=== PATIENT | male | born 1980 | race Caucasian/White ===

== ENCOUNTER 2025-08-08 21:19 | Emergency (ER) | payer BC, SELFPAY ==
--- NOTE | ~2025-08-08 | XR_ITS ---
Examination: XR hand LT min 3V Clinical History: Nail stuck in hand Comparison: None Technique: 3 views left hand Findings/impression: 1. Metallic nail palmar soft tissues along proximal third metacarpal. 2. No fracture or other acute bony abnormality. Reviewed, dictated and finalized at location R. OGRAPHER TECHNOLOGIST
[2025-08-08 21:24] VITALS: BP 132/85; PULSE 89; RESP 17; TEMP 36.6; O2SAT 100
[2025-08-08] MEDS: TETANUS,DIPHTHERIA,AC PERTUSSIS ADULT (0.5 ML) BOOSTRIX IM (22:42)
[2025-08-08] MEDS: ACETAMINOPHEN 500 MG TABLET 1000 MG PO (22:43)
--- OUTSIDE RECORDS SUMMARY | 2025-08-08 23:15 | XMS_ITS | Clinical Summary ---
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 Taking 50 mg a week Active adapalene-benzo yl peroxide 0.1-2.5 % Gel with Pump Apply once daily to face 45 Gram 1 05/31/2022 Active tadalafiL (CIALIS) 20 mg tablet Take 1 Tablet (20 mg) by mouth 1 time daily as needed for Erectile Dysfunction. 30 Tablet 11 05/31/2022 Active valACYclovir (VALTREX) 1 gram tablet Take 2 Tablets (2,000 mg) by mouth 2 times daily. 4 Tablet 1 05/31/2022 Active Active Problems No known active problems Immunizations Immunization Administration Dates Next Due (ADACEL/BOOSTRIX)(10 YR UP) TDAP VACCINE, 0.5ML, IM 07/29/2023,11/06/2015,01/16/2013 (PFIZER)(12 YR UP) COVID-19 VACCINE - EMERGENCY USE AUTHORIZATION, MRNA, [id number]) 30 MCG/0.3 ML IM SUSP 05/12/2022,11/17/2020,10/27/2020 Hepatitis B Vaccine 09/21/2023,07/29/2023 INFLUENZA VACCINE QUADRIVALE NT 6 MOS UP PF IM 06/13/2016,05/14/2014 Influenza Seasonal Unspecifi ed Formulation IM 05/12/2022,05/24/2021,06/22/2020,2018,06/08/2018,06/10/2017,05/15/2015,1 Family History Medical History Relation Name Comments Diabetes Father Heart Disease Father No Known Problems Mother Relation Name Status Comments Father Mother Social History Tobacco Use Types Packs/Day Years Used Date Smoking Tobacco: Never Smokeless Tobacco: Never Tobacco Cessation:Counseling Given: Not Answered Alcohol Use Standard Drinks/Week Comments Yes 0 (1 standard drink = 0.6 oz pur e alcohol) 5 - 7 drinks a week Sex and Gender Information Value Date Recorded Sex Assigned at Not on file Legal Sex Male 9:35 AM [employer] Gender Identity Not on file Sexual Orientation Not on file Last Filed Vital Signs Vital Sign Reading Time Taken Comments Blood Pressure 124/76 05/31/2022 3:48 PM CDT Pulse 84 05/31/2022 3:48 PM CDT Temperature 36.3 C (97.4 F) 05/31/2022 3:48 PM CDT Respiratory Rate 20 05/31/2021 1:42 PM CDT Oxygen Saturation 98% 05/31/2022 3:48 PM CDT Inhaled Oxygen Concentration - - Weight 115.7 kg (255 lb) 05/31/2022 3:48 PM CDT Height 195.6 cm (6' 5) 05/31/2022 3:48 PM CDT Body Mass Index 30.24 05/31/2022 3:48 PM CDT Plan of Treatment Health Maintenance Due Date Last Done Comments HEPATITIS B VACCINES (1 of 3 - 19+ 3-dose series) 2001 09/21/2023, 07/29/2023 INFLUENZA VACCINE (#1) 2025 , 05/24/2021, 06/22/2020, Additional history exists COVID-19 Vaccine ( - 2024-2 6 season) 2025 05/12/2022, 11/17/2020, 10/27/2020 DTAP/TDAP/TD VACCINES (4 - T d or Tdap) 07/29/2033 07/29/2023, 11/06/2015, 01/16/2013 HPV VACCINES (No Doses Required) Completed Insurance [facility] [employer] PPO
--- OUTSIDE RECORDS SUMMARY | 2025-08-08 23:15 | XMS_ITS | Clinical Summary ---
Author Organization [facility] [address] Address [address] [place] [id number] Care Team Providers Care It Program Engagement Director Name Role Phone Leonel Mays MD Primary Care Provider [phone] Allergies Active Allergy Reactions Criticality Noted Date Comments Ragweed Wheezing,Cough,Rhinorrhea Medium 05/14/2025 Medications clomiPHENE (CLOMID) 50 mg tablet Take 1 tablet (50 mg total) by mouth Active testosterone cypionate (DEPO-TESTOTERO NE) 200 mg/mL injection 2 Active NOT IN DATABASE, PRESCRIPTION, 25 mg Drug name: enclomiphene Dose: 25mg Route: oral Frequency: 2weekly Duration: Active anastrozole (ARIMIDEX) 1 mg tablet Take 1 tablet (1 mg total) by mouth once a week Active valACYclovir (VALTREX) 1 gram tablet TAKE 2 TABLETS BY MOUTH TWICE DAILY FOR 1 DAY 20 tablet 5 Active tadalafiL (CIALIS) 20 mg tablet Take 1 tablet (20 mg total) by mouth daily as needed for erectile dysfunction DO NOT EXCEED 1 PER 24 HOURS 30 tablet 5 Active buPROPion XL (WELLBUTRIN XL) 300 mg 24 hr tablet Take 1 tablet (300 mg total) by mouth every morning 90 tablet 1 5 Active multivitamin with minerals tablet Take 1 tablet by mouth daily Active omeprazole (PriLOSEC) 40 mg capsule Take 1 capsule (40 mg total) by mouth 2 (two) times a day before breakfast and dinner 180 capsule 3 5 Active Active Problems Problem Noted Date Diagnosed Date Normal esophagogastroduodenoscopy (EGD) 06/20/20 Esophageal dysphagia 06/20/2025 Dysphasia 06/20/2025 Esophageal stricture 06/20/2025 Seasonal affective disorder in remission 025 Encounter for well adult exam without abnormal f indings 07/19/2024 Assessment & Plan (07/19/2024 11:29 AM SIGN MANUFACTURER): A(n) yearly well adult visit has been performed today. Kb Baeza is up to date on screening tests. He is in need of None- no screening indicated at this time. He is up to date on needed preventative vaccinations. We discussed healthy lifestyle habits, educational material has been given. Medications reviewed, changes documented as per the medical record and discussed with patient along with risks vs benefits. Specific topics reviewed: drugs, ETOH, and tobacco, importance of regular dental care, importance of regular exercise, importance of varied diet, limit TV, media violence, minimize junk food, and seat belts. Return in 6 months Encounter for medical examination to establish c are 09/21/2023 Assessment & Plan (09/21/2023 8:27 AM SIGN MANUFACTURER): A(n) initial well visit to establish care has been performed today. Kb Baeza is not up to date on screening tests. He is in need of Cholesterol screening. He is not up to date on needed preventative vaccinations; He is in need of Influenza and Covid-19 (booster). We discussed healthy lifestyle habits, educational material has been given. Medications reviewed, changes documented as per the medical record and discussed with patient along with risks vs benefits. Return in 1 year Testosterone deficiency in male 09/21/20232022 Assessment & Plan (07/19/2024 11:31 AM SIGN MANUFACTURER): Stable, condition. Currently managed by Wagon Drill Operator and he is on Anastrozole 1 mg weekly, tadalafil 20 mg as needed and Testosterone 200 mg/mL. Continue current regimen. Keep follow up appt with Endo. Dermoid cyst of skin of back 09/21/2023 Encounters Date Type Department Care Team Description 5 Results Follow-Up [facility] Gastroenterology at [address] [address] Gaurav Cast MD Surgical pathology 5 11:17 AM CDT Anesthesia Event [address] [address] Gaurav Cast MD Fitterer, Morgan Lorena, EMBER 5 10:30 AM CDT - 5 11:00 AM CDT Surgery [address] [address] Gaurav Cast MD ESOPHAGOGASTRODUODENOSCOPY BIOPSY 5 8:51 AM CDT - 5 12:20 PM CDT Hospital Encounter [address] [address] Gaurav Cast MD Normal esophagogastroduodenoscopy (EGD) Discharge Disposition: Discharge to home or self care 5 Orders Only [facility] Gastroenterology at [address] [address] Gaurav Cast MD Nausea and vomiting, unspecified vomiting type (Primary Dx); Dysphasia; Esophageal stricture 5 Orders Only [facility] Gastroenterology at [address] [address] Gaurav Cast MD Normal esophagogastroduodenoscopy (EGD) (Primary Dx) 5 3:30 PM CDT Office Visit [facility] Primary Care at [address] [address] Leonel Mays MD Testosterone deficiency in male (Primary Dx); Overweight (BMI 25.0-29.9); Seasonal affective disorder in remission; Allergic rhinitis due to pollen, unspecified seasonality; Esophageal dysphagia from Last 3 Months Immunizations Immunization Administration Dates Next Due Hep A, Adult 06/18/2003,12/11/2002 Hep B Vaccine 02/02/2024,09/21/2023,07/29/2023 Influenza, Quadrivalent, Abiola l Culture-based MDCK, Preservative Free, Antibiotic Free, Intramuscular 05/30/2023,05/12/2022,05/24/2021,06/22 Influenza, Quadrivalent, Spl it, Preservative Free, Intramuscular 06/08/2018,06/13/2016,05/14/2014 Influenza, Trivalent, IM (MDV) ,05/24/2021,06/22/2020,05/25,06/08/2018,06/10/2017,05/15/2015 ,05/14/2014,06/19/2013 Influenza, Trivalent, Preser vative Free, Intramuscular 04/24/2024,06/10/2017,06/10/2016,05/15 Pfizer SARS-CoV-2 Monovalent Vaccination (12+ Yrs) PURPLE 05/12/2022 Tdap 07/29/2023,11/06/2015,01/16/2013 Surgical History Surgery Date Site/Laterality Comments VASECTOMY 2018 TONSILLECTOMY 08/28/1993 - 08/27/1994 Medical History Medical History Date Comments Testosterone deficiency in male 09/21/2023 Dysphagia Family History Medical History Relation Name Comments Diabetes Father Cancer Maternal Grandfather No Known Problems Maternal Grandmother No Known Problems Maternal Half-Sister No Known Problems Mother Cancer Paternal Grandfather Heart disease Paternal Grandfather Heart disease Paternal Grandmother Premature Sister Relation Name Status Comments Father Alive Maternal Grandfather Maternal Grandmother Maternal Half-Sister Alive Mother Alive Paternal Grandfather Paternal Grandmother Sister Social History Tobacco Use Types Packs/Day Years Used Date Smoking Tobacco: Never Smokeless Tobacco: Never Tobacco Cessation:Counseling Given: Not Answered Alcohol Use Standard Drinks/Week Comments Yes 2 (1 standard drink = 0.6 oz pur e alcohol) PHQ-2 Answer Date Recorded PHQ-2 Total Score (If total score is 3 or more points, staff should administer the PHQ-9) 0 05/14/2025 PHQ-9 Answer Date Recorded PHQ-9 Total Score 4 07/19/2024 AUDIT-C Answer Date Recorded Q1: How often do you have a drink containing alc ohol? 2-3 times a week 06/20/2025 Q2: How many drinks containi ng alcohol do you have on a typical day when you are drinking? 1 or 2 06/20/2025 Q3: How often do you have si x or more drinks on one occasion? Never 06/20/2025 Personal Safety Answer Date Recorded Have you ever been in or are you currently in a harmful physical or emotional relationship or is someone making you feel afraid or unsafe? 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 Not on file Not on file Not on file Last Filed Vital Signs Vital Sign Reading Time Taken Comments Blood Pressure 120/71 06/20/2025 12:00 PM CDT Pulse 74 06/20/2025 12:00 PM CDT Temperature 36.7 C (98 F) 06/20/2025 11:35 AM CDT Respiratory Rate 16 06/20/2025 12:00 PM CDT Oxygen Saturation 97% 06/20/2025 12:00 PM CDT Inhaled Oxygen Concentration - - Weight 108.9 kg (240 lb) 06/20/2025 9:58 AM CDT Height 193 cm (6' 4) 06/20/2025 9:58 AM CDT Body Mass Index 29.21 06/20/2025 9:58 AM CDT Plan of Treatment Upcoming Encounters Date Type Department Care Team (Latest Contact Info) Description 08/15/2025 10:00 AM SIGN MANUFACTURER Hospital Encounter [address] [address] Gaurav Cast MD [address] [address] 08/15/2025 10:00 AM SIGN MANUFACTURER Anesthesia Event [address] [address] Jake Patel CRNA [address] [place] [address] 08/15/2025 10:00 AM SIGN MANUFACTURER - 08/15/2025 10:30 AM SIGN MANUFACTURER Surgery [address] [address] Gaurav Cast MD [address] [place] [address] ESOPHAGOGASTRODUODENOSCOPY Scheduled Procedures Name Priority Associated Diagnoses Date/Ti me ESOPHAGOGASTRODUODENOSCOPY Dysphasia Esophageal stricture 08/15/2025 10:00 AM SIGN MANUFACTURER Health Maintenance Due Date Last Done Comments Hepatitis C Screening 1980 Pneumococcal vaccine <65 (1 of 2 - PCV) 2001 Zoster Vaccine (1 of 2) 2001 HPV Vaccines (1 - 3-dose SCD M series) 2009 Covid-19 Vaccine (2024-2 6 season) 2025 04/24/2024, 05/30/2023, 05/12/2022, Additional history exists Influenza Vaccine (#1) 2025 , 05/30/2023, 05/12/2022, Additional history exists Regular Well Visit/Exam 18-64 07/19/2025 07/19/2024, 09/21/2023 Depression Screening 05/14/2026 05/14/2025, 07/19/2024, 07/19/2024, Additional history exists DTaP/Tdap/Td Vaccine (4 - Td or Tdap) 07/29/2033 07/29/2023, 11/06/2015, 01/16/2013 Hepatitis B Screening Completed 02/02/2024 , 09/21/2023, 07/29/2023 Varicella Vaccines Discontinued Procedures Procedure Name Priority Date/Time Associated Diagnosis Comments SURGICAL PATHOLOGY Routine 06/20/2025 11:25 AM CDT Normal esophagogastroduodenoscopy (EGD) ESOPHAGOGASTRODUODENOSCOPY BIOPSY 06/20/2025 11:17 AM CDT Normal esophagogastroduodenoscopy (EGD) EGD 06/20/2025 11:02 AM CDT from Last 3 Months Results * Surgical pathology (06/20/2025 11:25 AM CDT) Tissue (Gastric/Stomach biopsy) 06/20/2025 11:25 AM CDT Tissue specimen (specimen) (Polyp(s), colon/colorectal, esophageal, gastric) 06/20/2025 11:26 AM CDT Tissue specimen (specimen) (Esophageal biopsy) 06/20/2025 11:26 AM CDT Tissue specimen (specimen) (Esophageal biopsy) 06/20/2025 11:27 AM CDT Narrative PATHOLOGY TEMP LLB FOR ASP - 06/24/2025 5:38 PM CDT [facility] Department of Pathology [address] [place] [address] Note to Patients: This report may contain a detailed description of human tissue sent by a health care provider to the laboratory for pathologic evaluation. The content of this report is essential for diagnosis and may provide important critical findings. This information may be unfamiliar to patients to review without a medical professional present. It is advised that the patient review this report in the presence of a health care provider who can answer questions and explain the details. Final Report Patient Name: KB BAEZA : 1980 (Age: 45) Gender: M Address: [address] [place] [address] Hospital #: [id number] Service: Gastro Location: Patient Type: [facility] OUTPATIENT Taken: 06/20/2025 Received: 06/23/2025 Accessioned: 06/23/2025 Reported: 06/24/2025 Physician(s): Ketan Moore M.D. Diagnosis: A. Stomach, biopsy: - Oxyntic and gastric transitional mucosa with no significant abnormality. - No Helicobacter pylori is seen on H&E stained slides. B. Stomach, polyp biopsy: - Fundic gland polyp. - Separate fragments of polypoid oxyntic mucosa. C. Esophagus, distal, biopsy: - Squamous mucosa with reactive epithelial changes of the type that can be seen in gastroesophageal reflux. - Scattered intraepithelial eosinophils (focally up to 10 / high-power field). D. Esophagus, proximal, biopsy: - Squamous mucosa with no significant abnormality. Sivakumar Escamilla MD, PHD Report Electronically Reviewed and Signed Out By Sivakumar Escamilla MD, PHD 06/24/2025 17:38:59 Specimen(s) Received: A: Gastric biopsy rule out H. pylori B: Gastric polyp biopsy C: Distal esophageal biopsy rule out EOE D: Proximal esophageal biopsy Microscopic Description: Unless gross-only is specified, the final diagnosis for each specimen is based on a microscopic examination of each tissue sample. Clinical History: The patient is a 45-year-old man with a normal EGD. Operative procedure: Upper GI endoscopy with biopsy. Gross Description Received in four formalin jars labeled with the patient's identifiers. A. Labeled gastric biopsy rule out H pylori and consists of two fay tissue fragments measuring 0.3 cm and 0.5 cm. Entirely submitted. Labeled A1. Jar 0. B. Labeled gastric polyp biopsy and consists of three fay tissue fragments ranging from 0.1-0.2 cm. Entirely submitted. Labeled B1. Jar 0. C. Labeled distal esophageal biopsy rule out EOE and consists of four fay-white tissue fragments ranging from 0.1-0.2 cm. Entirely submitted. Labeled C1. Jar 0. D. Labeled proximal esophageal biopsy and consists of four fay-white tissue fragments ranging from 0.1-0.3 cm. Entirely submitted. Labeled D1. Jar 0. [facility]/06/23/2025 12:43 GONZALO Fernandes, PA ([facility]) Microscopic slide review and interpretation for this case was performed at [facility], Department of Surgical Pathology, [address] [facility], [place] [id number], [address] # [id number] us Gaurav Cast MD LAB PATHOLOGY ORDERABLES Fin al Result PATHOLOGY TEMP LLB FOR ASP * EGD (06/20/2025 11:02 AM CDT) Anatomical Region Laterality Modality Other Narrative Procedure Note Gaurav Cast MD - 06/20/2025 11:02 AM CDT [facility] Patient Name: Kb Baeza Procedure Date: 06/20/2025 11:02AM Date of : 1980 Admit Type: Outpatient Age: 45 Gender: Male Attending MD: Gaurav Cast M.D., Room: [facility] PROCEDURE 1 Note Status: Finalized Procedure: Upper GI endoscopy Indications: Dysphagia Referring MD: Leonel Mays M.D. Providers: Gaurav Cast M.D. Medicines: Monitored Anesthesia Care Complications: No immediate complications. Estimated blood loss:None. Estimated Blood Loss: Estimated blood loss: none. Procedure: The benefits, risks, and alternatives to theprocedure and sedation were discussed and informed consentwas obtained. The scope was passed under direct vision. The [id number] UPPER ENDOSCOPY was introduced through the mouth, and advanced to the second part of duodenum. The upper GI endoscopy was accomplished without difficulty. The patient tolerated the procedure well. Findings: Mucosal changes including ringed esophagus, longitudinal furrows,white plaques and stenosis were found in the entire esophagus. Esophageal findings were graded using the Eosinophilic Esophagitis Endoscopic Reference Score (EoE-EREFS) as: Edema Grade 1 Present (decreasedclarity or absence of vascular markings), Rings Grade 1 Mild (subtle circumferential ridges seen on esophageal distension), Exudates Grade1 Mild (scattered white lesions involving less than 10 percent of the esophageal surface area), Furrows Grade 1 Mild (vertical lineswithout visible depth) and Stricture present. Biopsies were obtained from the proximal and distal esophagus with cold forceps for histology of suspected eosinophilic esophagitis. Patchy minimal inflammation characterized by erythema was found inthe gastric antrum. Biopsies were taken with a cold forceps forHelicobacter pylori testing. A few small pedunculated and sessile polyps were found on the greater curvature of the stomach. Biopsies were taken with a cold forceps for histology. The examined duodenum was normal. Impression: - Esophageal mucosal changes suspicious for eosinophilic esophagitis with distal esophageal stricture noted. - Minimal antral gastritis. Biopsied. - A few small gastric polyps. Biopsied. - Normal examined duodenum. - Biopsies were taken with a cold forceps for evaluation of eosinophilic esophagitis. Recommendation: - Await pathology results. - Await results of H pylori testing. Treat for eradication if H pylori positive. - Use Prilosec (omeprazole) 40 mg PO BID. - Repeat upper endoscopy in 8 weeks to evaluate the response to therapy. Will consider carefulesophageal dilation at that time. Gaurav Cast M.D. Gaurav Cast M.D. 06/20/2025 11:38:12 AM . Number of Addenda: 0 Note Initiated On: 06/20/2025 11:02 AM Gaurav Cast MD ENDOSCOPY PROCEDURES Final R esult from Last 3 Months Insurance [facility] Member Subscriber Plan / Payer (Ef fective 2021-Present) Name:Kb Baeza Relation to Subscriber:Self Name:Kb Baeza Payer ID:[id number] (NAIC) Type: OTHER Address: [address] [place] [id number] [employer] [place] [employer] [place] Care Teams It Program Engagement Director Relationship Specialty Start Date End Date Leonel Mays MD [facility] [address] [place] [address] PCP - General Family Medicine 09/21/23
--- NOTE | 2025-08-09 02:43 | ED.GENADULT ---
HPI - General Adult General Chief complaint: Extremity Injury, Upper <ELTON Najera - Last Filed: 08/09/25 02:56> Stated complaint: nail punctured hand <ELTON Najera Last Filed: 08/09/25 02:56> Time Seen by Provider: 08/08/25 21:50 <ELTON Najera Last Filed: 08/09/25 02:56> History of Present Illness HPI narrative: 45-year-old male presenting with a puncture wound to the palm of his left hand from a metal nail. Patient states he was working in his garage when he went to support himself to sit down and his hand came down on the nail. Denies numbness/tingling. Neurovascular intact. <ELTON Najera Last Filed: 08/09/25 02:56> Related Data Allergies/adverse reactions: Allergies Allergy/AdvReac Type Severity Reaction Status Date / Time No Known Allergies Allergy Verified 08/08/25 21:31 <ELTON Najera Last Filed: 08/09/25 02:56> Review of Systems Review of Systems: All systems reviewed & are unremarkable except as noted in HPI and below <ELTON Najera Last Filed: 08/09/25 02:56> Exam Narrative: GENERAL: Uncomfortable, no acute distress. HEAD: Normocephalic, atraumatic. EYES: PERRLA and EOMI. ENT: Nares clear, no rhinorrhea or epistaxis. Mucous membranes moist. Oropharynx without tonsillar hypertrophy exudate or other lesions. Bilateral TMs pearly [place] non-bulging NECK: Supple. No adenopathy or masses. No carotid bruits or JVD CHEST: Clear to auscultation. No respiratory distress. No wheezes rales or rhonchi HEART: Regular rate and rhythm. No murmur heard. Normal peripheral pulses. ABDOMEN: Soft, nontender, nondistended, normal active bowel sounds. EXTREMITIES: Normal range of motion. No edema. Left center of palm with approx. 2 cm nail sticking out. Neurovascular intact. SKIN: Warm, dry, no rash. NEURO: No focal deficits. Alert and oriented x3. PSYCH: Normal mood and affect <ELTON Najera - Last Filed: 08/09/25 02:56> Course Vital Signs Vital signs: Vital Signs Temperature 98 F 08/08/25 21:24 Pulse Rate 89 08/08/25 21:24 Respiratory Rate 17 08/08/25 21:24 Blood Pressure 132/85 08/08/25 21:24 Pulse Oximetry 100 08/08/25 21:24 Oxygen Delivery Room Air 08/08/25 21:24 Temperature 98 F 08/08/25 21:24 Pulse Rate 89 08/08/25 21:24 Respiratory Rate 17 08/08/25 21:24 Blood Pressure 132/85 08/08/25 21:24 Pulse Oximetry 100 08/08/25 21:24 Oxygen Delivery Room Air 08/08/25 21:24 <ELTON Najera - Last Filed: 08/09/25 02:56> Vital Signs Temperature 98 F 08/08/25 21:24 Pulse Rate 89 08/08/25 21:24 Respiratory Rate 17 08/08/25 21:24 Blood Pressure 132/85 08/08/25 21:24 Pulse Oximetry 100 08/08/25 21:24 Oxygen Delivery Room Air 08/08/25 21:24 Temperature 98 F 08/08/25 21:24 Pulse Rate 89 08/08/25 21:24 Respiratory Rate 17 08/08/25 21:24 Blood Pressure 132/85 08/08/25 21:24 Pulse Oximetry 100 08/08/25 21:24 Oxygen Delivery Room Air 08/08/25 21:24 <Ismael Camacho DO - Last Filed: 08/09/25 05:36> MDM MDM Narrative Medical decision making narrative: 45-year-old male presenting with a puncture wound to the palm of his left hand from a metal nail. Patient states he was working in his garage when he went to support himself to sit down and his hand came down on the nail. Denies numbness/tingling. Neurovascular intact. XR demonstrates no evidence of bony penetration by the nail according to ER provider Dr. Goyal and myself. Pending radiologist read. Administered Tylenol and updated the patient's tetanus. I removed the nail without difficulty. Patient tolerated this well. Patient's hand was irrigated and wrapped by nursing staff. Plan to discharge home with prophylactic antibiotic. The patient is appropriate for outpatient treatment and follow-up. Given reasons to return. <ELTON Najera Last Filed: 08/09/25 02:56> 45-year-old male presenting with a puncture wound to the palm of his left hand from a metal nail. Patient states he was working in his garage when he went to support himself to sit down and his hand came down on the nail. Denies numbness/tingling. Neurovascular intact. XR demonstrates no evidence of bony penetration by the nail according to ER provider Dr. Goyal and myself. Pending radiologist read. Administered Tylenol and updated the patient's tetanus. I removed the nail without difficulty. Patient tolerated this well. Patient's hand was irrigated and wrapped by nursing staff. Plan to discharge home with prophylactic antibiotic. The patient is appropriate for outpatient treatment and follow-up. Given reasons to return. This visit was performed by both a physician and an Advanced Practice Provider. I performed all aspects of the Medical Decision Making as documented. X-rays interpreted by myself: X-ray right hand showed a 3 cm metallic foreign body about 1.7 cm into the soft tissue the hand, no bony involvement <Ismael Camacho DO - Last Filed: 08/09/25 05:36> Differential Diagnosis Differential Diagnosis: Differential diagnostic considerations for skin/abscess/foreign body issues include abscess of skin or subcutaneous tissue, viral exanthem, dermatophytosis, urticaria, herpes zoster, allergic reaction to drug, cellulitis, eczema, insect bites, impetigo, contact dermatitis, vasculitis. <ELTON Najera Last Filed: 08/09/25 02:56> Imaging Data Attestation: I personally reviewed and interpreted this imaging study as follows: <ELTON Najera Last Filed: 08/09/25 02:56> My impression: No bony penetration. <ELTON Najera Last Filed: 08/09/25 02:56> Discharge Plan Discharge Clinical Impression: Hand injury <ELTON Najera Last Filed: 08/09/25 02:56> Patient Disposition: Home <ELTON Najera Last Filed: 08/09/25 02:56> Condition: Stable <ELTON Najera - Last Filed: 08/09/25 02:56> Instructions: Puncture Wound (ED) <ELTON Najera - Last Filed: 08/09/25 02:56> Additional Instructions: Return if symptoms worsen or concerns: any increase in redness, swelling, pain or fever over 101. Clean wound with mild soapy water. Clean the wound and change the dressing daily. Take antibiotics as prescribed. Take anti-inflammatories (Aleve, Ibuprofen, Naproxen, etc) or Tylenol as needed for pain. Follow up with primary care provider. <ELTON Najera - Last Filed: 08/09/25 02:56> Patient Language: Occitan <ELTON Najera - Last Filed: 08/09/25 02:56> Prescriptions: New amoxicillin-pot clavulanate [Augmentin] 500-125 mg tablet 1 tablet PO TID Qty: 15 0RF <ELTON Najera - Last Filed: 08/09/25 02:56> Follow-up/Referrals: Davon,Leonel Dumas MD [Primary Care Provider, Unknown] <ELTON Najera - Last Filed: 08/09/25 02:56>
== END 2025-08-08 23:25 | disposition home or self-care (01) ==
LOC: ANHED 23:13
PROVIDERS: PCP Family Medicine
DX: S61.432A Puncture wound without foreign body of left hand, initial encounter (principal); Z23 Encounter for immunization; W45.0XXA Nail entering through skin, initial encounter
CPT/HCPCS: 73130; 90471; 90715; 99283; A9270